=== PATIENT | male | born 1990 | race African-American/Black ===

== ENCOUNTER 2019-03-12 13:20 | Emergency (ER) | payer OTHER ==
[~2019-03-12] VITALS: Ht 182.9 cm; Wt 75.0 kg
[2019-03-12 13:28] VITALS: BP 132/65
[2019-03-12] MEDS ORDERED: IBUPROFEN 600 MG TAB PO ONE (13:45)
--- NOTE | 2019-03-12 14:18 | REP ---
Four views left wrist: 03/12/2019. Indication: Pain following injury. Comparison: None. Findings: There is no acute fracture, subluxation or dislocation. No lytic or blastic lesions are present. Impression: No acute osseous left wrist injury. Electronically Signed by Henrry Lim DO 03/12/2019 02:09 P
[2019-03-12] MEDS ORDERED: NAPR-837 PO (14:22)
== END 2019-03-12 14:28 | disposition home or self-care (01) ==
LOC: M ED 13:20
DX: S63.502A Unspecified sprain of left wrist, initial encounter (principal); X58.XXXA Exposure to other specified factors, initial encounter; Y92.89 Other specified places as the place of occurrence of the external cause